=== PATIENT | male | born 1960 | race Caucasian/White ===

== ENCOUNTER 2022-07-29 00:40 | Emergency (ER) | payer BC ==
[2022-07-29 01:02] LABS: BILIRUBIN,URINE NEGATIVE (NEGATIVE); CLARITY,URINE CLEAR (CLEAR); GLUCOSE, URINE (UA) NEGATIVE (NEGATIVE); KETONES,URINE (UA) NEGATIVE (NEGATIVE); LEUKOCYTE ESTERASE, URINE NEGATIVE (NEGATIVE); NITRITE,URINE NEGATIVE (NEGATIVE); OCCULT BLOOD,URINE LARGE (NEGATIVE); PROTEIN,URINE NEGATIVE (NEGATIVE); UROBILINOGEN,URINE 0.2 (NORMAL) E.U./dL (NORMAL)
[2022-07-29 01:07] LABS: BASOPHILS % (AUTO) 0.3 %; EOSINOPHILS # (AUTO) 0.1 10^3/uL (0.0-0.7); EOSINOPHILS % (AUTO) 0.8 %; HCT - HEMATOCRIT 45.3 % (42.0-52.0); HGB - HEMOGLOBIN 14.9 g/dL (14.0-18.0); LYMPHOCYTES # (AUTO) 2.2 10^3/uL (1.5-3.5); LYMPHOCYTES % (AUTO) 20.2 %; MEAN CORPUSCULAR HEMOGLOBIN 27.6 pg (27.0-31.0); MEAN CORPUSCULAR HGB CONC 32.9 g/dL (32.0-36.0); MEAN CORPUSCULAR VOLUME 83.9 fL (80.0-94.0); MEAN PLATELET VOLUME 9.4 fL (7.4-11.4); MONOCYTES % (AUTO) 9.6 %; NEUTROPHILS # (AUTO) 7.4 10^3/uL (1.5-6.6); NEUTROPHILS % (AUTO) 68.8 %; PLT - PLATELET COUNT 183 10^3/uL (130-450); RED CELL DISTRIBUTION WIDTH 13.2 % (12.0-15.0); WHITE BLOOD COUNT 10.8 x10^3/uL (4.8-10.8)
[2022-07-29 01:10] LABS: BACTERIA,URINE None Seen /HPF (None Seen); SQUAMOUS EPITHELIAL CELL,UR NONE SEEN (<= Few); WBC,URINE 0-3 /HPF (0-3)
[2022-07-29 01:22] LABS: ALBUMIN 4.5 g/dL (3.2-5.5); ALBUMIN/GLOBULIN RATIO 1.2 (1.0-2.2); BILIRUBIN,TOTAL 1.3 mg/dL (0.2-1.0); CALCIUM 10.1 mg/dL (8.5-10.3); CREATININE 1.1 mg/dL (0.6-1.2); POTASSIUM 4.1 mmol/L (3.5-5.0); TOTAL PROTEIN 8.2 g/dL (6.7-8.2)
[2022-07-29] MEDS ORDERED: HYDROmorphone 1 MG/ML CARPUJECT IVP STA ×2 (01:38→02:48)
[2022-07-29] MEDS ORDERED: KETOROLAC 30 MG/ML VIAL IVP STA (01:38)
--- NOTE | 2022-07-29 02:51 | ED Physician Documentation ---
PD HPI MALE - Stated complaint Stated Complaint: LT SIDE PX - Chief complaint Chief Complaint: Abd Pain - History obtained from History obtained from: Patient, Family - Additional information Additional information: The patient returns to the emergency department with his for chief complaint of strong pain in his left flank that is been going on for the last couple of days but seems worse tonight. The patient has a complicated recent urologic history, with a diagnosis of small bladder cancer for which she is recently been treated. The patient states he had a CT scan done a couple of wee ks ago which did not show any stones, and that he was not having the pain at that time. He states that about 3 days ago, he began to have onset of left flank pain and that this got bad enough that he came to the emergency department very early yesterday morning. The patient was worked up with labs, urinalysis, and CT scan of the abdomen and pelvis. He was found to have a slightly elevated white count, slightly elevated creatinine, marked blood in his urine and a mildly elevated leukocyte esterase, and a CT showing some modest dilatation of the left ureter and mild hydronephrosis of the left kidney. The radiologist read the CT as possibly representing a stone that had recently passed, as no stone was visible on CT. The patient had received IV Dilaudid, which he reports was very effective, but the hydrocodone that he was prescribed, he states did not help at all. He was then prescribed oxycodone, and states he has been taking 2 tablets every 6 hours and that the only time it seemed to work was right after he got home from the ER took a dose. However, patient states that since that wore off, he began to have pain again and could never get it under control after that. He states that trying to take the pain medications that he had was like taking nothing. The patient states that he could not sleep tonight and finally told his he wanted to come back here. The patient denies any fevers or chills. He has been taking the prescribed antibiotic as directed. The patient has had some nausea and occasional vomiting. He states he has had a loss of appetite. The patient does note that he has had a kidney stone before and this feels very similar. He states he is sent many messages to his urologist, but it being the weekend, he has not heard back yet. No other compla ints at this time. Review of Systems Constitutional: reports: Reviewed and negative Eyes: reports: Reviewed and negative Ears: reports: Reviewed and negative Nose: reports: Reviewed and negative Throat: reports: Reviewed and negative Cardiac: reports: Reviewed and negative Respiratory: reports: Reviewed and negative GI: reports: Abdominal Pain (Left flank) : reports: Reviewed and negative Skin: reports: Reviewed and negative Musculoskeletal: reports: Reviewed and negative Neurologic: reports: Reviewed and negative Psychiatric: reports: Reviewed and negative Endocrine: reports: Reviewed and negative Immunocompromised: reports: Reviewed and negative PD PAST MEDICAL HISTORY - Past Medical History Past Medical History: Yes : Other Other Past Medical History: Bladder CA - Past Surgical History Past Surgical History: Yes Ortho: Carpal Tunnel surgery, Spine surgery - Present Medications Home Medications: Ambulatory Orders Medication Instructions Recorded Confirmed cephALEXin [Keflex] 500 mg PO TID #20 cap 07/28/22 07/29/22 oxyCODONE [Roxicodone] 5 - 10 mg PO Q6H PRN #20 tablet 07/28/22 07/29/22 MDD 6 oxyCODONE [Roxicodone] 5 - 10 mg PO Q4H PRN #10 tablet 07/29/22 - Allergies Allergies/Adverse Reactions: Allergies Allergy/AdvReac Type Severity Reaction Status Date / Time tamsulosin [From Flomax] AdvReac Unknown Verified 07/29/22 00:49 - Social History Does the pt smoke?: No Smoking Status: Never smoker Does the pt drink ETOH?: No Does the pt have substance abuse?: No - Immunizations Immunizations are current?: Yes - POLST Patient has POLST: No PD ED PE NORMAL - Vitals Vital signs reviewed: Yes - General General: Alert and oriented X 3, Well developed/nourished, Other (Moderate distress, appears in pain) - HEENT HEENT: Atraumatic, PERRL, EOMI, Moist mucous membranes - Neck Neck: Supple, no meningeal sign - Cardiac Cardiac: RRR, No murmur - Respiratory Respiratory: No respiratory distress, Clear bilaterally - Abdomen Abdomen: Soft, Non distended, Other (Mild tenderness left flank, No rebound or g uarding) - Derm Derm: Normal color, Warm and dry, No rash - Extremities Extremities: No deformity, No edema - Neuro Neuro: Alert and oriented X 3 - Psych Psych: Normal mood, Normal affect Results - Vitals Vitals: Vital Signs - 24 hr 07/29/22 00:44 Temperature 37.0 C Heart Rate 105 H Respiratory 20 Rate Blood Pressure 125/102 H O2 Saturation 96 Oxygen O2 Source Room air - Labs Labs: Laboratory Tests 07/29/22 07/29/22 07/29/22 00:53 01:02 01:02 WBC 10.8 RBC 5.40 Hgb 14.9 Hct 45.3 MCV 83.9 MCH 27.6 MCHC 32.9 RDW 13.2 Plt Count 183 MPV 9.4 Neut # (Auto) 7.4 H Lymph # (Auto) 2.2 Rooks # (Auto) 1.0 Eos # (Auto) 0.1 Baso # (Auto) 0.0 Absolute Nucleated RBC 0.00 Nucleated RBC % 0.0 Sodium 136 Potassium 4.1 Chloride 97 L Carbon Dioxide 28 Anion Gap 11.0 BUN 15 Creatinine 1.1 Estimated GFR (MDRD) 68 L Glucose 190 H Calcium 10.1 Total Bilirubin 1.3 H AST 19 ALT 18 Alkaline Phosphatase 62 Total Protein 8.2 Albumin 4.5 Globulin 3.7 Albumin/Globulin Ratio 1.2 Lipase 35 Urine Color YELLOW Urine Clarity CLEAR Urine pH 6.0 Ur Specific Pelican 1.015 Urine Protein NEGATIVE Urine Glucose (UA) NEGATIVE Urine Ketones NEGATIVE Urine Occult Blood LARGE H Urine Nitrite NEGATIVE Urine Bilirubin NEGATIVE Urine Urobilinogen 0.2 (NORMAL) Ur Leukocyte Esterase NEGATIVE Urine RBC 11-25 H Urine WBC 0-3 Ur Squamous Epith Cells NONE SEEN Urine Bacteria None Seen Ur Microscopic Review INDICATED Urine Culture Comments NOT INDICATED PD Medical Decision Making - ED course Complexity details: reviewed old records, reviewed results, re-evaluated patient, considered differential, d/w patient, d/w family ED course: The patient appeared in significant pain, and was given an additional milligram of Dilaudid IV. His laboratory studies were actually found to be improved today, with normalization of both his white count and his creatinine. His urinalysis showed mild improvement in the amount of blood, and normalization of his leukocyte esterase. He had slightly fewer white blood cells in his urine t pratik than yesterday. The patient was feeling quite a bit better after the Dilaudid and a spent quite a bit of time discussing with the patient and his the options for pain control. His symptoms certainly sound consistent with a kidney stone and this is supported by the blood in his urine. The dilatation of the left urinary system Also supports this possibility. However, the CT does not show a Stone, and this makes the likelihood of presence of the stone much lower. At this point, I have advised the patient that we will need to try to optimize his home analgesia regimen and that he should call his urologist office first thing this morning when they open. The patient is agreeable to the plan. I advised him to stay on top of the pain by taking 2-3 of his oxycodone every 4 hours. He has been given 1 more dose of Dilaudid here to be sure he is optimized upon discharge. We have discussed the usual indications for return. Departure - Departure Disposition: Home, Self Care Clinical Impression: Flank pain with history of urolithiasis Condition: Stable Instructions: ED Flank Pain Uncertain Cause Prescriptions: oxyCODONE [Roxicodone] 5 - 10 mg PO Q4H PRN #10 tablet PRN Reason: Pain Comments: On further review, it appears that the oxycodone you were prescribed yesterday is just plain oxycodone without the Tylenol. You may take 2-3 tablets every 4 hours, as needed for pain. A prescription for little extra has been sent to the pharmacy here in [place] in case you need to take the higher end of the dosing range over the next couple of days. Hopefully, the pain will pass or your urologist will be able to get to the bottom of what is going on. Your labs today are actually normalized since yesterday. Your urinalysis has also improved. Your CT scan yesterday showed a mild dilation of the left ureter, indicating that you may have recently passed a stone. It is highly unusual for kidney stone not to show up on a CT scan, but this can rarely happen, and it is possible that you have one that has reached the junction of the ureter and bladder and is having a little more difficulty passing. This could be an explanation for your pain. Other considerations with regard to the pain would include pain originating in one of the nerve roots in your back, for example from a pinched nerve or from early shingles, before the rash breaks out. Either of these can cause a strong pain that is felt along the flank, where the course of the nerve runs, and would not show up on CT scan. What ever the case, you should call your urologist first thing when the clinic opens this morning. We will fax your records to the clinic, but if they do not receive them, they may also call her emergency department and request that the records be sent over, as well.
[2022-07-29 03:13] VITALS: BP 152/94
== END 2022-07-29 03:14 | disposition home or self-care (01) ==
LOC: ED 00:40
DX: R10.9 Unspecified abdominal pain (principal); Z87.442 Personal history of urinary calculi
CPT/HCPCS: 36415; 80053; 81001; 83690; 85025; 96374; 96375; 96376; 99283; 99284; J1170; 81003; 87086

== ENCOUNTER 2023-05-05 08:36 | Day surgery (SDC) | payer BC ==
[2023-05-05] MEDS ORDERED: LACTATED RINGERS 1,000 ML IV ONE (08:46)
[2023-05-05 09:08] VITALS: O2SAT 97
[2023-05-05] MEDS ORDERED: PROPOFOL 500 MG/50 ML 500 MG/50 ML VIAL ONE (09:29)
--- NOTE | 2023-05-05 09:31 | ANESTHESIA ---
Pre-Anesthesia VS, & Labs - Diagnosis screening - Procedure colonoscopy Vital Signs: Temp Pulse Resp BP Pulse Ox O2 Flow Rate 36.1 C L 63 17 139/88 H 97 05/05/23 08:59 05/05/23 08:59 05/05/23 08:59 05/05/23 08:59 05/05/23 08:59 Height: 5 ft 7 in Weight (kg): 94.6 kg Body Mass Index: 32.6 BMI Classification: Obese - NPO >8 hours Home Medications and Allergies Home Medications: Ambulatory Orders Aspirin [Aspirin Regimen] 81 mg PO DAILY 05/05/23 Atorvastatin Calcium 40 mg PO DAILY 05/05/23 Levothyroxine [Synthroid] 112 mcg PO QDAC 05/05/23 traZODone [Desyrel] 100 mg PO HS 05/05/23 Aspirin [Aspirin Regimen] 81 mg PO DAILY 05/05/23 Atorvastatin Calcium 40 mg PO DAILY 05/05/23 Levothyroxine [Synthroid] 112 mcg PO QDAC 05/05/23 traZODone [Desyrel] 100 mg PO HS 05/05/23 Allergies/Adverse Reactions: Allergies Allergy/AdvReac Type Severity Reaction Status Date / Time tamsulosin [From Flomax] AdvReac Unknown Verified 07/29/22 00:49 Anes History & Medical History - Anesthetic History Anesthesia Complications: reports: No previous complications Family history of Anesthesia Complications: Denies Family history of Malignant Hyperthermia: Denies - Medical History Cardiovascular: reports: High cholesterol Pulmonary: reports: None Gastrointestinal: reports: None Urinary: reports: Other Musculoskeletal: reports: None Endocrine/Autoimmune: reports: HyPOthyroidism Blood Disorders: reports: None Skin: reports: None Smoking Status: Never smoker Psychosocial: reports: No issues indicated History of Cancer?: No - Surgical History General: reports: Other Orthopedic: reports: Rotator cuff repair, Shoulder arthroplasty, Spine surgery Exam General: Alert, Oriented x3, Cooperative Dental: WNL Mouth Openin Fingerbreadth Neck Mobility: Normal Mallampati classification: II Thyromental Distance: 4-6 cm Respiratory: Lungs clear Cardiovascular: Regular rate Plan Anesthesia Type: General, Total IV Consent for Procedure(s) Verified and Reviewed: Yes Code Status: Attempt Resuscitation ASA classification: 2-Mild systemic disease Is this case an emergency?: No
[2023-05-05] MEDS ORDERED: LACTATED RINGERS 750 ML IV ONE (10:30)
[2023-05-05 10:47] VITALS: BP 122/75
--- NOTE | 2023-05-05 11:04 | ANESTHESIA POST OP EVALUATION ---
Anesthesia Post Eval - Post Anesthesia Eval Vitals: Last Vital Signs Temp 36.9 C 05/05/23 10:40 Pulse 70 05/05/23 10:40 Resp 14 05/05/23 10:40 BP 122/75 05/05/23 10:40 Pulse Ox 97 05/05/23 10:40 O2 Flow Rate CV Function Including HR & BP: Stable Pain Control: Satisfactory Nausea & Vomiting: Negative Mental Status: Baseline Respiratory Status: Airway Patent Hydration Status: Satisfactory Anesthesia Complications: None
== END 2023-05-05 08:37 | disposition home or self-care (01) ==
LOC: SDS 08:36
PROVIDERS: ATTEND Surgery
DX: Z12.11 Encounter for screening for malignant neoplasm of colon (principal); K57.30 Diverticulosis of large intestine without perforation or abscess without bleeding; Z86.010 Personal history of colon polyps; E66.9 Obesity, unspecified; Z68.32 Body mass index [BMI] 32.0-32.9, adult; Z80.0 Family history of malignant neoplasm of digestive organs
CPT/HCPCS: 45378; J7120

== ENCOUNTER 2023-09-26 07:00 | Outpatient (CLI) | payer BC ==
[2023-09-26 16:43] LABS: INFLUENZA A H3- RESP PCR PANEL DETECTED; INFLUENZA B - RESP PCR PANEL NOT DETECTED; RSV- RESP PCR PANEL NOT DETECTED; SARS-CoV-2 -RESP PCR PANEL NOT DETECTED
== END 2023-09-26 23:59 | disposition home or self-care (01) ==
LOC: LAB.S 07:00
PROVIDERS: ATTEND Emergency Medicine
DX: B34.9 Viral infection, unspecified (principal)
CPT/HCPCS: 87637

== ENCOUNTER 2024-02-25 10:11 | Outpatient (CLI) | payer BC ==
--- NOTE | 2024-02-25 17:22 | XRAY Report ---
PROCEDURE: Foot 3+V RT (Weight Bearing) INDICATIONS: RIGHT FOOT PAIN TECHNIQUE: 3 views of the foot were acquired. COMPARISON: None. FINDINGS: Bones: No fractures or dislocations. No suspicious bony lesions. Mild first MTP joint space narrow ing and juxta-articular osteophytosis. Mild degenerative changes in the midfoot with dorsal osteophyt osis. Soft tissues: No tibiotalar joint effusion. Achilles tendon appears normal. Small plantar calcanea l enthesophyte. IMPRESSION: 1.No acute bony abnormality. If clinical symptoms persist, consider repeat radiograph in 10-14 days v ersus cross-sectional imaging. 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 Reviewed by: Neva Newby MD on 02/25/2024 5:21 PM PDT Approved by: Neva Newby MD on 02/25/2024 5:21 PM PDT Station ID: [id number]
== END 2024-02-25 10:12 | disposition home or self-care (01) ==
LOC: DI 10:11
PROVIDERS: ATTEND Podiatrist
DX: M19.071 Primary osteoarthritis, right ankle and foot (principal)